=== PATIENT | female | born 1990 | race Caucasian/White ===

== ENCOUNTER 2020-03-12 17:24 | Emergency (ER) | payer MEDICAID, OTHER ==
[~2020-03-12] VITALS: Ht 157.5 cm; Wt 118.2 kg
[2020-03-12] MEDS ORDERED: SODIUM CHLORIDE FLUSH 10ML SYR IVF ONE (18:30)
[2020-03-12 19:07] LABS: HCG UR SG 1.023 (1.003-1.030); MICROSCOPIC AUTO
[2020-03-12 19:13] LABS: BASOPHILS % (AUTO) 1 % (0-1); EOSINOPHILS % (AUTO) 3 % (1-7); LYMPHOCYTES % (AUTO) 44 % (22-44); MEAN CORPUSCULAR HEMOGLOBIN 29.7 pg (27.0-34.8); MEAN CORPUSCULAR HGB CONC 33.4 g/dL (32.4-35.8); MEAN PLATELET VOLUME 9.2 fL (7.4-10.4); MONOCYTES % (AUTO) 6 % (2-9); NEUTROPHILS % (AUTO) 47 % (42-75); PLATELET COUNT 300 x10^3/uL (130-400); RED BLOOD COUNT 4.89 x10^6/uL (3.82-5.3)
[2020-03-12 19:22] LABS: ALANINE AMINOTRANSFERASE 43 U/L (12-78); ALBUMIN 4.1 g/dL (3.4-5.0); CALCIUM 8.7 mg/dL (8.5-10.1); CREATININE 0.94 mg/dL (0.55-1.02)
[2020-03-12 19:24] LABS: ALKALINE PHOSPHATASE 57 U/L (45-117); BILIRUBIN,TOTAL 0.3 mg/dL (0.2-1.0)
[2020-03-12 19:30] LABS: MD NO
[2020-03-12 19:42] LABS: ANION GAP 8 mmol/L (5-15); CHLORIDE 111 mmol/L (98-107)
--- NOTE | 2020-03-12 20:03 | NUR ---
PT IN GOWN IN [facility] WITH CALL LIGHT WITHIN REACH. PT EDUCATED ON ER PROCESS AND VERBALIZES UNDERSTANDING. PT ATTACHED TO VS MONITORS. AWAITING ERP FOR PT HISTORY AND ASSESSMENT AT THIS TIME.
--- NOTE | 2020-03-12 20:42 | NUR ---
PT VSS AND UPDATED IN EMR. AWAITING ERP AT THIS TIME. PT HAS CALL LIGHT WITHIN REACH AND DENIES NEED TO HAVE BOWEL MOVEMENT AT THIS TIME.
--- NOTE | 2020-03-12 21:57 | NUR ---
PT D/C WITH D/C SUMMARY AND SCRIPTS. ALL QUESTIONS ANSWERED. PT AMBULATES TO REGISTRATION DESK WITH STEADY GAIT FOR D/C HOME AND DENIES ANY OTHER NEEDS PERTAINING TO THIS VISIT. PT PROVIDED WITH LABS PER PT REQUEST.
[2020-03-12 21:58] VITALS: BP 129/89
== END 2020-03-12 22:00 | disposition home or self-care (01) ==
LOC: ED 17:54
DX: R10.30 Lower abdominal pain, unspecified (principal); R10.9 Unspecified abdominal pain; R19.7 Diarrhea, unspecified; Z98.51 Tubal ligation status; Z90.49 Acquired absence of other specified parts of digestive tract; Z90.89 Acquired absence of other organs
CPT/HCPCS: 36415; 80053; 81001; 81025; 83690; 85025; 99283